=== PATIENT | male | born 1980 | race African-American/Black ===

== ENCOUNTER 2017-06-07 10:00 | Emergency (ER) | payer MEDICAID ==
[~2017-06-07] VITALS: Ht 182.9 cm; Wt 85.0 kg
[2017-06-07] MEDS ORDERED: SODIUM CHLORIDE 0.9% 1,000 ML IV ONE (10:40)
[2017-06-07 11:08] LABS: BASOPHILS % 0.4 % (0.0-2.0); EOSINOPHILS % 0.9 % (0.0-5.0); HEMATOCRIT. 44.1 % (42.0-52.0); HEMOGLOBIN. 15.1 g/dL (14.0-18.0); LYMPHOCYTES % 19.5 % (20.0-50.0); MEAN CORPUSCULAR HEMOGLOBIN 32.8 pg (28.0-32.0); MEAN CORPUSCULAR VOLUME 95.7 fL (80.0-94.0); MEAN PLATELET VOLUME 10.2 fl (7.4-10.4); NEUTROPHILS % 73.2 % (40.0-76.0); PLATELET 191 x1000/uL (130-400); RED CELL DISTRIBUTION WIDTH 14.9 % (11.6-14.6)
[2017-06-07 11:28] LABS: CARBON DIOXIDE 16 mEq/L (21-32); CHLORIDE 104 mEq/L (98-107)
[2017-06-07] MEDS ORDERED: PHENYTOIN SODIUM EXTENDED 100MG CAPSULE PO ONE (11:45)
[2017-06-07 13:11] VITALS: BP 140/62
== END 2017-06-07 13:19 | disposition home or self-care (01) ==
LOC: ER 10:27
DX: G40.409 Other generalized epilepsy and epileptic syndromes, not intractable, without status epilepticus (principal); F17.290 Nicotine dependence, other tobacco product, uncomplicated; Z91.14 Patient's other noncompliance with medication regimen
CPT/HCPCS: 36415; 80053; 80185; 85025; 96360; 96361; 99285; 99406; J7030; Z7610